=== PATIENT | female | born 1990 | race Caucasian/White ===

== ENCOUNTER → 2023-09-11 | Outpatient (CLI) | payer OTHER ==
[~2023-09-11] MED LIST: CIPR500 PO; CODACE30 PO; HYDACE5 PO; IBUP600 PO; IBUP800 PO; LEVFLO500 PO; RXCODACET PO
[2023-09-12 16:10] LABS: HPV 16 Negative (Negative); HPV 18 Negative (Negative); HPV OTHER HR TYPES Negative (Negative)
== END ==
LOC: LAB 17:10 → LAB SHORT 17:10
PROVIDERS: Family Medicine
DX: Z12.4 Encounter for screening for malignant neoplasm of cervix (principal)
CPT/HCPCS: 87624; G0145

== ENCOUNTER → 2023-11-13 | Outpatient (CLI) | payer OTHER | END | disposition home or self-care (01) | LOC: LAB 11:17 → LAB SHORT 11:17 | DX: R30.0 Dysuria (principal) | CPT/HCPCS: 87086 ==

== ENCOUNTER → 2025-02-06 | Outpatient (CLI) | payer OTHER | LOC: LAB SHORT 18:55 → LAB 18:55 | DX: N39.0 Urinary tract infection, site not specified (principal) | CPT/HCPCS: 87086 ==

== ENCOUNTER → 2025-07-04 | Outpatient (CLI) | payer OTHER | LOC: LAB 19:18 → LAB SHORT 19:18 | DX: N39.0 Urinary tract infection, site not specified (principal) | CPT/HCPCS: 87077; 87086; 87186 ==